=== PATIENT | female | born 1995 | race African-American/Black ===

== ENCOUNTER 2022-10-16 18:52 | Emergency (ER) | payer OTHER, SELFPAY ==
--- NOTE | ~2022-10-16 | CT_ITS ---
EXAMINATION: CT brain wo con DATE: 10/16/2022 19:56 INDICATION: Headache. TECHNIQUE: Computed tomography (CT) of the head was performed without intravenous contrast. The mA wa s adjusted according to patient size. Iterative reconstruction technique was employed. The dose-lengt h product was 605.33 mGy-cm. COMPARISON: None FINDINGS: There is no intracranial hemorrhage, acute infarction, or abnormal intracranial mass lesion . The ventricles are normal in size. The orbits are normal. The paranasal sinuses are clear. The mast oid air cells are normal. IMPRESSION: 1. Normal brain. Reviewed, dictated and finalized at location E. IMPRESSION: 1. Normal brain.
--- NOTE | ~2022-10-16 | XR_ITS ---
EXAMINATION: XR chest 2V DATE: 10/16/2022 20:06 INDICATION: Lightheadedness. Anxiety. TECHNIQUE: Frontal and lateral views of the chest were obtained. COMPARISON: None. FINDINGS: The chest demonstrates clear lungs without pneumonia, pleural effusion, or pneumothorax. Th e heart size is normal. A density in right upper quadrant is likely a gallstone in the gallbladder. IMPRESSION: 1. No acute cardiopulmonary disease. Reviewed, dictated and finalized at location E.
[2022-10-16 19:04] VITALS: BP 176/108; PULSE 66; RESP 15; TEMP 36.4; O2SAT 100
--- NOTE | 2022-10-16 19:19 | ECG_ITS ---
Measurements Intervals [place] Rate: 58 P: 3 MD: 161 QRS: 62 QRSD: 81 T: 35 QT: 396 QTc: 390 Interpretive Statements SINUS BRADYCARDIA WITH SINUS ARRHYTHMIA BORDERLINE ECG NO PREVIOUS ECG AVAILABLE FOR COMPARISON Electronically Signed On 10-17-2022 6:47:10 CDT by Tomás Amaro D.O.
[2022-10-16 19:31] VITALS: BP 148/108; PULSE 55; RESP 18; O2SAT 100
--- NOTE | 2022-10-16 19:38 | ED.ANXIETY ---
HPI - Anxiety General Chief Complaint: Anxiety Stated Complaint: ELEVATED BP, ANXIETY Time Seen by Provider: 10/16/22 19:19 Source: patient Mode of arrival: ambulatory Limitations: no limitations History of Present Illness HPI narrative: This is a 27 year old female that presents to the ER for hypertension. Reports she took her blood pressure today and it was in the 170s systolic this concerned her and caused her to be anxious. She was recently started propranolol for anxiety. She took two of them prior to arrival. Reports a headache. Denies chest pain, shortness of breath, lower extremity edema, or focal numbness or weakness. Related Data Allergies Allergy/AdvReac Type Severity Reaction Status Date / Time No Known Allergies Allergy Verified 10/16/22 19:06 Review of Systems Review of Systems: CONSTITUTIONAL: Denies fever CARDIOVASCULAR: Denies chest pain, or edema. RESPIRATORY: Denies dyspnea. NEUROLOGIC: Reports headache. Denies numbness, or weakness. PSYCHIATRIC: Reports anxiety All systems reviewed & are unremarkable except as noted in HPI and below PMFSH Past Medical History Medical History (Updated 10/16/22 @ 20:37 by Fabienne Barreto PA-C) History of anxiety Social History Social History (Updated 10/16/22 @ 19:41 by Fabienne Barreto PA-C) Smoking status: Never smoker Exam Narrative: GENERAL: Anxious, well-nourished, and in no acute distress. HEAD: Normocephalic, atraumatic. EYES: EOMI. ENT: Nares clear, no rhinorrhea or epistaxis. Mucous membranes moist. Oropharynx without tonsillar hypertrophy exudate or other lesions. NECK: Supple. No adenopathy or masses. No JVD CHEST: Clear to auscultation. No respiratory distress. No wheezes rales or rhonchi HEART: Regular rate and rhythm. No murmur heard. Normal peripheral pulses. EXTREMITIES: Normal range of motion. No edema. SKIN: Warm, dry, no rash. NEURO: No focal deficits. Alert and oriented x3. PSYCH: Anxious, tearful Course Course Emergency Course: Patient reports relief after a dose of Ativan. Her blood pressure has normalized Vital Signs Vital signs: Vital Signs Temperature 97.5 F L 10/16/22 19:04 Pulse Rate 66 10/16/22 19:04 Respiratory Rate 15 10/16/22 19:04 Blood Pressure 176/108 H 10/16/22 19:04 Pulse Oximetry 100 10/16/22 19:04 Oxygen Delivery Room Air 10/16/22 19:04 Temperature 97.5 F L 10/16/22 19:04 Pulse Rate 64 10/16/22 20:09 Respiratory Rate 16 10/16/22 20:09 Blood Pressure 130/86 10/16/22 20:09 Pulse Oximetry 100 10/16/22 20:09 Oxygen Delivery Room Air 10/16/22 19:04 MDM - Anxiety MDM Narrative Medical decision making narrative: Patient presents to the emergency department for elevated blood pressure and anxiety. Blood pressure elevated upon arrival. She was given a dose of Ativan for anxiety. Her blood pressure has down trended. She reports feeling much better. She also reported a headache. She is neurologically intact. CT scan of the brain is without acute findings. CBC and metabolic panel without concerning changes. Chest x-ray without acute cardiopulmonary abnormality. EKG is without acute findings. Patient was updated on work-up. She is to follow-up with her primary care provider. She was given warnings to return to the ER Differential Diagnosis Differential diagnosis: Likely acute anxiety and other (hypertension, hypertensive urgency, palpitations, arrhythmia) Lab Data Attestation: I reviewed the patient's lab results. 10/16/22 19:35 10/16/22 19:35 Labs: Lab Results 10/16/22 Range/Units 19:35 WBC 5.7 (4.5-10.0) K/mm3 RBC 4.58 (4.2-5.4) M/mm3 Hgb 12.1 (12.0-15.0) g/dL Hct 37.8 (37.0-47.0) % MCV 82.5 (80-100) fl MCH 26.4 (26-34) pg MCHC 32.0 (32-36) g/dl RDW 13.4 (11.5-14.5) % Plt Count 216 (150-375) k/mm3 MPV 10.7 H (7.4-10.4) fl Immature Gran % (Auto) 0.2 (0-0.5) % Neut % (Auto) 68.
[2022-10-16 19:40] LABS: Basophils Percent Auto 0.4 % (0.2-1.2); Eosinophils Percent Auto 0.7 % (0-4.4); Hematocrit 37.8 % (37.0-47.0); Hemoglobin 12.1 g/dL (12.0-15.0); Immature Granulocyte Absolute 0.01 K/mm3 (0.00-0.031); Immature Granulocyte Percent A 0.2 % (0-0.5); Lymphocytes Absolute Auto 1.41 K/mm3 (0.9-3.2); Lymphocytes Percent Auto 24.9 % (18.3-44.2); Mean Corpuscular Hemoglobin 26.4 pg (26-34); Mean Corpuscular Volume 82.5 fl (80-100); Mean Platelet Volume 10.7 fl (7.4-10.4); Monocytes Absolute Auto 0.3 K/mm3 (0.1-0.6); Monocytes Percent Auto 5.8 % (2.6-8.5); Neutrophils Absolute Auto 3.9 K/mm3 (1.3-6.7); Platelet Count Result 216 k/mm3 (150-375); Red Blood Count 4.58 M/mm3 (4.2-5.4); Red Cell Distribution Width 13.4 % (11.5-14.5); White Blood Count 5.7 K/mm3 (4.5-10.0)
[2022-10-16] MEDS: LORazepam (*CRX) 0.5 MG TABLET PO (19:40)
[2022-10-16 19:50] LABS: Alanine Aminotransferase 16 U/L (6-35); Albumin Level 4.7 g/dL (3.5-5.1); Alkaline Phosphatase 87 U/L (38-126); Anion Gap 8 mmol/L (8-16); Aspartate Amino Transferase 24 U/L (14-36); Bilirubin,Total 0.4 mg/dL (0.2-1.3); Blood Urea Nitrogen 12 mg/dL (7-17); Calcium 9.1 mg/dL (8.4-10.2); Carbon Dioxide 27 mmol/L (22-30); Chloride 101 mmol/L (98-107); Estimated CRCL calculation 90 ml/min; Estimated Glomerular Filt Rate > 60; Glucose 87 mg/dL (65-110); Potassium 3.9 mmol/L (3.4-5.0); Sodium 136 mmol/L (137-145)
[2022-10-16 20:09] VITALS: BP 130/86; PULSE 64; RESP 16; O2SAT 100
--- NOTE | 2022-10-16 20:09 | PC.NURSE ---
Pt reports improvement in s/s after medication administration
[2022-10-16 20:58] VITALS: BP 139/87; PULSE 60; RESP 16; TEMP 36.5; O2SAT 100
== END 2022-10-16 20:59 | disposition home or self-care (01) ==
PROVIDERS: Emergency Provider Physician Assistant
DX: R03.0 Elevated blood-pressure reading, without diagnosis of hypertension (principal); F41.9 Anxiety disorder, unspecified; R00.1 Bradycardia, unspecified
CPT/HCPCS: 36415; 70450; 71046; 80053; 85025; 93005; 99284; A9270

== ENCOUNTER 2022-12-01 18:49 | Emergency (ER) | payer OTHER, SELFPAY ==
--- NOTE | ~2022-12-01 | CT_ITS ---
Non-contrast Head CT History: Headache COMPARISON: 10/16/2022 Technique: Axial non-contrast imaging of the brain was performed. Dose reduction technique was used on this scan by utilizing automated exposure control and iterative reconstruction technique. The dose -length product (DLP) was 605.33 mGy-cm. Findings: There is no evidence of intracranial hemorrhage, mass lesion, or acute infarct. Brain par enchyma appears normal. The ventricles and subarachnoid spaces are normal in size. The calvarium ap pears normal. The visualized paranasal sinuses and mastoid air cells are clear. Impression: No significant abnormality seen. Reviewed, dictated and finalized at location . Impression: No significant abnormality seen.
[2022-12-01 18:53] VITALS: BP 146/102; PULSE 75; RESP 16; TEMP 36.3; O2SAT 100
[2022-12-01 21:17] VITALS: BP 165/109; PULSE 63; RESP 16; TEMP 36; O2SAT 100
[2022-12-02] VITALS (7 sets, daily range): BP systolic 122; BP diastolic 87; PULSE 67; RESP 20; O2SAT 100
--- NOTE | 2022-12-02 00:52 | ED.HA ---
HPI - Headache General Chief Complaint: Headache Stated Complaint: headache, right ear pain Time Seen by Provider: 12/02/22 00:25 History of Present Illness HPI Narrative: 27-year-old female with a recent diagnosis of anxiety and carpal tunnel syndrome reports for evaluation for paresthesias to her right first through third fingers with intermittent pain for the past month, right sided parietal headache, and paresthesias to her right first through fifth toes that started just before she developed her headache. Patient states she has had a headache for approximately 3 days. She states her right ear feels clogged as well. She reports associated blurred vision but states she believes this is because she was not wearing her glasses when she felt like her vision was blurred and is currently not having blurred vision. She denies new onset focal numbness or weakness, trauma or injury to her head, nausea or vomiting, abdominal pain, diplopia or loss of vision, neck pain or back pain. She denies paresthesias to the rest of her right lower extremity. She does not have a history of headaches so wanted to come to the ER to make sure nothing was wrong Related Data Allergies Allergy/AdvReac Type Severity Reaction Status Date / Time No Known Allergies Allergy Verified 12/02/22 00:59 Review of Systems Review of Systems: CONSTITUTIONAL: Denies fever, chills EYES: Denies visual changes, redness, or discharge. ENT: Denies rhinorrhea, congestion, sore throat, or otalgia. CARDIOVASCULAR: Denies chest pain, palpitations, or edema. RESPIRATORY: Denies cough or dyspnea. GASTROINTESTINAL: Denies abdominal pain, nausea, vomiting, or diarrhea. GENITOURINARY: Denies dysuria or hematuria. SKIN: Denies rash or itching. MUSCULOSKELETAL: Denies back pain, joint pain, or myalgia. NEUROLOGIC: See HPI PSYCHIATRIC: Denies anxiety or depression. [facility] Past Medical History Medical History History of anxiety Social History Social History Smoking status: Never smoker Exam Narrative: GENERAL: Well-appearing, in no acute distress. Patient resting comfortably in exam bed. She is pleasant and conversational. HEAD: Normocephalic, atraumatic. No tenderness to temporal artery. No tenderness to light touch. EYES: PERRLA ENT: Nares clear. Mucous membranes moist. Oropharynx without tonsillar hypertrophy exudate or other lesions. Bilateral TMs are lowry nonbulging. No serous effusions appreciated. NECK: Supple. No nuchal rigidity. CHEST: No respiratory distress. Clear to auscultation, no adventitious breath sounds. HEART: Regular rate and rhythm. No murmur heard. Normal peripheral pulses. ABDOMEN: Soft, nontender, normal active bowel sounds. EXTREMITIES: Normal range of motion. No edema. SKIN: Warm, dry, no rash. NEURO: No focal deficits. Alert and oriented x3. Cranial nerves II through XII intact. Strength 5 out of 5 in bilateral upper and lower extremities. Sensation intact throughout. No pronator drift. Normal [id number]. PSYCH: Normal mood and affect. Course Vital Signs Vital signs: Vital Signs Temperature 97.3 F L 12/01/22 18:53 Pulse Rate 75 12/01/22 18:53 Respiratory Rate 16 12/01/22 18:53 Blood Pressure 146/102 H 12/01/22 18:53 Pulse Oximetry 100 12/01/22 18:53 Oxygen Delivery Room Air 12/01/22 18:53 Temperature 96.8 F L 12/01/22 21:17 Pulse Rate 67 12/02/22 03:30 Respiratory Rate 20 12/02/22 03:30 Blood Pressure 122/87 12/02/22 03:30 Pulse Oximetry 100 12/02/22 03:30 Oxygen Delivery Room Air 12/01/22 18:53 MDM - Headache MDM Narrative Medical decision making narrative: 27-year-old female with a recent diagnosis of anxiety and carpal tunnel syndrome reports for evaluation for paresthesias to her right first through third fingers with intermittent pain, paresthesias to
[2022-12-02] MEDS: SODIUM CHLORIDE 0.9% IV 1,000 ML 999 ML IV CONT (01:06)
[2022-12-02] MEDS: diphenhydrAMINE HCl INJ 50 MG/ML VIAL 25 MG IV PUSH (01:07)
[2022-12-02] MEDS: PROCHLORPERAZINE EDISYLATE 10 MG/2 ML VIAL IV PUSH (01:07)
[2022-12-02] MEDS: KETOROLAC 30 MG/ML VIAL (*BKC) IV PUSH (01:07)
[2022-12-02 01:09] LABS: Basophils Percent Auto 0.5 % (0.2-1.2); Eosinophils Percent Auto 0.5 % (0-4.4); Hematocrit 34.4 % (37.0-47.0); Hemoglobin 11.2 g/dL (12.0-15.0); Immature Granulocyte Absolute 0.01 K/mm3 (0.00-0.031); Immature Granulocyte Percent A 0.2 % (0-0.5); Mean Corpuscular HGB Conc 32.6 g/dl (32-36); Mean Corpuscular Hemoglobin 26.4 pg (26-34); Mean Corpuscular Volume 81.1 fl (80-100); Mean Platelet Volume 10.7 fl (7.4-10.4); Monocytes Absolute Auto 0.3 K/mm3 (0.1-0.6); Monocytes Percent Auto 6.8 % (2.6-8.5); Neutrophils Absolute Auto 2.4 K/mm3 (1.3-6.7); Platelet Count Result 215 k/mm3 (150-375); Red Blood Count 4.24 M/mm3 (4.2-5.4); Red Cell Distribution Width 13.7 % (11.5-14.5); White Blood Count 4.3 K/mm3 (4.5-10.0)
[2022-12-02 01:19] LABS: Anion Gap 6 mmol/L (8-16); Blood Urea Nitrogen 12 mg/dL (7-17); Carbon Dioxide 28 mmol/L (22-30); Chloride 102 mmol/L (98-107); Estimated CRCL calculation 123 ml/min; Estimated Glomerular Filt Rate > 60; Glucose 85 mg/dL (65-110); Potassium 3.4 mmol/L (3.4-5.0); Sodium 136 mmol/L (137-145)
[2022-12-02 03:06] LABS: SPREG INTERNAL CONTROL Positive; Serum Qual hCG Negative
== END 2022-12-02 05:14 | disposition home or self-care (01) ==
PROVIDERS: Emergency Provider Physician Assistant
DX: R20.2 Paresthesia of skin (principal); G44.89 Other headache syndrome; G56.03 Carpal tunnel syndrome, bilateral upper limbs
CPT/HCPCS: 36415; 70450; 80048; 84703; 85025; 96361; 96374; 96375; 99284; J0780; J1200; J1885; J7030

== ENCOUNTER 2023-10-06 01:56 | Emergency (ER) | payer OTHER, SELFPAY ==
[2023-10-06] VITALS (13 sets, daily range): BP systolic 133–151; BP diastolic 79–97; PULSE 66–103; RESP 14–21; TEMP 36.4; O2SAT 98–100
[2023-10-06 03:54] LABS: Basophils Percent Auto 0.3 % (0.2-1.2); Eosinophils Percent Auto 0.3 % (0-4.4); Hematocrit 32.3 % (37.0-47.0); Hemoglobin 10.8 g/dL (12.0-15.0); Immature Granulocyte Absolute 0.01 K/mm3 (0.00-0.031); Immature Granulocyte Percent A 0.2 % (0-0.5); Lymphocytes Absolute Auto 1.68 K/mm3 (0.9-3.2); Lymphocytes Percent Auto 25.6 % (18.3-44.2); Mean Corpuscular HGB Conc 33.4 g/dl (32-36); Mean Corpuscular Hemoglobin 26.7 pg (26-34); Mean Corpuscular Volume 79.8 fl (80-100); Mean Platelet Volume 9.5 fl (7.4-10.4); Monocytes Absolute Auto 0.5 K/mm3 (0.1-0.6); Monocytes Percent Auto 6.9 % (2.6-8.5); Neutrophils Absolute Auto 4.4 K/mm3 (1.3-6.7); Neutrophils Percent Auto 66.7 % (45.5-73.1); Platelet Count Result 194 k/mm3 (150-375); Red Blood Count 4.05 M/mm3 (4.2-5.4); Red Cell Distribution Width 13.5 % (11.5-14.5); White Blood Count 6.6 K/mm3 (4.5-10.0)
[2023-10-06 04:06] LABS: Alanine Aminotransferase 12 U/L (6-35); Albumin Level 4.1 g/dL (3.5-5.1); Alkaline Phosphatase 73 U/L (38-126); Anion Gap 4 mmol/L (4-12); Aspartate Amino Transferase 19 U/L (14-36); Bilirubin,Total 0.3 mg/dL (0.2-1.3); Blood Urea Nitrogen 22 mg/dL (7-17); Calcium 9.2 mg/dL (8.4-10.2); Carbon Dioxide 27 mmol/L (22-30); Chloride 108 mmol/L (98-107); Estimated CRCL calculation 69 ml/min; Estimated Glomerular Filt Rate > 60; Glucose 90 mg/dL (65-110); Potassium 3.9 mmol/L (3.4-5.0); Sodium 139 mmol/L (137-145)
--- NOTE | 2023-10-06 04:53 | ED.GENADULT ---
HPI - General Adult General Chief complaint: Unspecified Stated complaint: body is heavy Time Seen by Provider: 10/06/23 04:33 Source: patient Limitations: no limitations History of Present Illness HPI narrative: Patient is a 28-year-old female presents to the emergency department complaining of waking up a few hours ago and feeling like her body was heavy and she was having some tingling in her fingers and toes is since gone away and has not returned, admits to history is in the past when she was having anxiety and thinks it may be related to that. Patient denies any recent injuries or recent illness. Patient admits to having carpal tunnel in her right hand frequently has paresthesias in her right hand that is not new for her. Patient denies headache, urinary discomfort, weakness, new or change medications. Patient admits to having 1 drink of alcohol yesterday. 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 Patient denies chest pain, difficulty breathing, cough, fever abdominal pain, nausea, vomiting. Related Data Allergies Allergy/AdvReac Type Severity Reaction Status Date / Time No Known Allergies Allergy Verified 12/02/22 00:59 Review of Systems Review of Systems: A 10 system review of systems was completed on the patient and is negative except for what is stated in the HPI. Nursing and ancillary documentation was reviewed. [facility] Past Medical History Medical History History of anxiety Social History Social History Smoking status: Never smoker Comments At time of signature, I have reviewed and agree with nursing past medical, surgical, social and family history unless otherwise noted. Please see the nursing chart for further information. There is no relevant family history pertinent to the presenting complaint. Exam Narrative: CONST: No acute distress. Well nourished. HENMT: Head is normocephalic and atraumatic. Tacky mucous membranes. EYES: No conjunctival icterus, injection, or pallor. PERRL. NECK: No meningeal signs. RESP: Able to speak in full sentences. Normal respiratory effort. CTAB. CARDIO: Regular rate. Regular rhythm. 2+ DP and radial pulses bilaterally. GI: Nondistended. No tenderness to palpation. Soft. : No CVA tenderness to palpation. SKIN: No rashes or lesions noted on exposed skin. NEURO: Oriented x3. Moves all extremities. Motor strength is 5/5 in bilateral upper and lower extremities. Sensation intact to light touch throughout bilateral upper and lower extremities. EXTREM/MSK/BACK: No pedal edema. Course Vital Signs Vital signs: Vital Signs Temperature 97.5 F L 10/06/23 01:57 Pulse Rate 99 10/06/23 01:57 Respiratory Rate 14 10/06/23 01:57 Blood Pressure 151/97 H 10/06/23 01:57 Pulse Oximetry 100 10/06/23 01:57 Oxygen Delivery Room Air 10/06/23 01:57 Temperature 97.5 F L 10/06/23 01:57 Pulse Rate 99 10/06/23 01:57 Respiratory Rate 14 10/06/23 01:57 Blood Pressure 151/97 H 10/06/23 01:57 Pulse Oximetry 100 10/06/23 01:57 Oxygen Delivery Room Air 10/06/23 01:[address] [facility] Narrative Medical decision making narrative: Patient presents with the above complaint. Initial vitals are remarkable for no significant abnormalities. Physical examination as noted above. Plan discussed: Laboratory analysis. Patient's symptoms have resolved and patient is feeling much better at this time. Patient has a history of. Past attributed to anxiety which is the most likely source as patient denies any focal neurological deficits and was feeling anxious at that time and started. Patient counseled on signs symptoms that would warrant immediate return to the emergency department. Patient instructed to follow up with her primary care physician. Patient demonstrates understa
== END 2023-10-06 05:15 | disposition home or self-care (01) ==
LOC: ANHED 05:01
PROVIDERS: Emergency Provider Student in an Organized Health Care Education/Training Program
DX: R20.2 Paresthesia of skin (principal); F41.9 Anxiety disorder, unspecified
CPT/HCPCS: 36415; 80053; 85025; 99283